=== PATIENT | male | born 1955 | race Caucasian/White ===

== ENCOUNTER 2018-01-17 15:16 | Inpatient (IN) | payer MEDICARE ==
[~2018-01-17] VITALS: Ht 182.9 cm; Wt 124.4 kg
[2018-01-17] MEDS ORDERED: SODIUM CHLORIDE FLUSH 10ML SYR IVF ONE ×2 (16:00)
[2018-01-17] MEDS ORDERED: METF500T17 PO (16:15)
[2018-01-17] MEDS ORDERED: ATEN50TA41 PO (16:15)
[2018-01-17] MEDS ORDERED: LISI-170 PO (16:15)
[2018-01-17 16:23] LABS: BASOPHILS # (AUTO) 0.02 x10^3/uL (0-0.1); BASOPHILS % (AUTO) 0 % (0-1); EOSINOPHILS # (AUTO) 0.08 x10^3/uL (0-0.4); EOSINOPHILS % (AUTO) 1 % (1-7); LYMPHOCYTES # (AUTO) 1.25 x10^3/uL (1-3.4); LYMPHOCYTES % (AUTO) 19 % (22-44); MD NO; MEAN CORPUSCULAR HGB CONC 33.4 g/dL (33.2-36.2); MEAN CORPUSCULAR VOLUME 89.9 fL (81-97); MONOCYTES # (AUTO) 0.46 x10^3/uL (0.2-0.8); MONOCYTES % (AUTO) 7 % (2-9); NEUTROPHILS # (AUTO) 4.91 x10^3/uL (1.8-6.8); NEUTROPHILS % (AUTO) 73 % (42-75); PLATELET COUNT 205 x10^3/uL (130-400); RED BLOOD COUNT 4.61 x10^6/uL (4.38-5.82); RED CELL DISTRIBUTION WIDTH 13.5 % (9.4-14.8)
[2018-01-17 16:36] LABS: ALANINE AMINOTRANSFERASE 28 U/L (12-78); ALBUMIN 2.9 g/dL (3.4-5.0); ANION GAP 9 mmol/L (5-15); CALCIUM 8.3 mg/dL (8.5-10.1); CHLORIDE 101 mmol/L (98-107); CREATININE 0.95 mg/dL (0.7-1.3)
[2018-01-17 16:41] LABS: ALKALINE PHOSPHATASE 91 U/L (45-117); BILIRUBIN,TOTAL 0.2 mg/dL (0.2-1.0); TOTAL PROTEIN 6.8 g/dL (6.4-8.2)
[2018-01-17 16:57] LABS: MICROSCOPIC NOT IND
[2018-01-17 17:03] LABS: CULTURE INDICATED? NO
[2018-01-17] MEDS: NICOTINE 14MG/24 HR PATCH.TD24 TD SCH ×2 (17:30→22:29)
[2018-01-17] MEDS ORDERED: ONDANSETRON ODT 4 MG PO PRN (17:30)
[2018-01-17] MEDS ORDERED: VANCOMYCIN PER PHARMACY MC PRN (17:30)
[2018-01-17] MEDS ORDERED: SODIUM CHLORIDE FLUSH 10ML SYR IVF PRN (17:30)
[2018-01-17] MEDS: INSULIN LISPRO 100 UNITS/ML, PEN SQ-INSULIN SCH ×2 (17:30→22:30)
[2018-01-17] MEDS: SODIUM CHLORIDE 0.9% 1,000 ML IV SCH (17:55)
[2018-01-17] MEDS ORDERED: AMPICILLIN/SULBACTAM 3 GM in SODIUM CHLORIDE 0.9% 100 ML IV ONE (18:00)
[2018-01-17 18:08] LABS: ACETONE, SERUM Small (20mg/dL) mg/dL (Negative)
[2018-01-17] MEDS ORDERED: PHARMACOKINETIC CONSULTATION MC ONE (18:30)
[2018-01-17] MEDS ORDERED: PHARMACOKINETIC MONITORING MC PRN (18:30)
[2018-01-17 18:44] LABS: HEMOGLOBIN A1C 12.5 % (4.2-6.3)
[2018-01-17] MEDS: VANCOMYCIN 1,700 MG in SODIUM CHLORIDE 0.9% 250 ML IV SCH (20:01)
[2018-01-17] MEDS ORDERED: INSULIN GLARGINE 100 UNITS/ML, PEN SQ-INSULIN SCH (21:00)
[2018-01-17] MEDS: ACETAMINOPHEN 325 MG TABLET PO PRN (22:29)
[2018-01-17] MEDS: ENOXAPARIN 40 MG/0.4 ML SQ SCH (22:29)
[2018-01-18] MEDS: AMPICILLIN/SULBACTAM 3 GM in SODIUM CHLORIDE 0.9% 100 ML IV SCH ×5 (01:02→20:11)
[2018-01-18 01:32] VITALS: BP 132/84
[2018-01-18] MEDS: ACETAMINOPHEN 325 MG TABLET PO PRN (04:19)
[2018-01-18 05:12] LABS: BASOPHILS # (AUTO) 0.03 x10^3/uL (0-0.1); BASOPHILS % (AUTO) 1 % (0-1); EOSINOPHILS % (AUTO) 2 % (1-7); LYMPHOCYTES % (AUTO) 24 % (22-44); MD NO; MEAN CORPUSCULAR HEMOGLOBIN 30.3 pg (27.5-34.5); MEAN CORPUSCULAR HGB CONC 33.7 g/dL (33.2-36.2); MEAN CORPUSCULAR VOLUME 90.1 fL (81-97); MEAN PLATELET VOLUME 10.2 fL (7.4-10.4); MONOCYTES # (AUTO) 0.41 x10^3/uL (0.2-0.8); MONOCYTES % (AUTO) 7 % (2-9); NEUTROPHILS # (AUTO) 4.16 x10^3/uL (1.8-6.8); NEUTROPHILS % (AUTO) 67 % (42-75); PLATELET COUNT 168 x10^3/uL (130-400); RED BLOOD COUNT 4.33 x10^6/uL (4.38-5.82); RED CELL DISTRIBUTION WIDTH 13.7 % (9.4-14.8)
[2018-01-18 05:22] LABS: ALBUMIN 2.4 g/dL (3.4-5.0); ANION GAP 7 mmol/L (5-15); CALCIUM 8.5 mg/dL (8.5-10.1); CHLORIDE 104 mmol/L (98-107)
[2018-01-18 05:33] LABS: ALANINE AMINOTRANSFERASE 23 U/L (12-78); ALKALINE PHOSPHATASE 76 U/L (45-117); BILIRUBIN,TOTAL 0.3 mg/dL (0.2-1.0); CHOL/HDL RATIO 5.1; CHOLESTEROL, TOTAL 154 mg/dL (140-239); CREATININE 0.89 mg/dL (0.7-1.3); HDL CHOL % 19 % (26-37); HDL CHOLESTEROL (DIRECT) 30 mg/dL (40-60); LDL CHOLESTEROL,CALCULATED 78 mg/dL (54-169); LDL/HDL RATIO 2.6 (0.5-3.0); TOTAL PROTEIN 5.8 g/dL (6.4-8.2); TRIGLYCERIDES 228 mg/dL (50-200); VLDL CHOLESTEROL 46 mg/dL (0-25)
[2018-01-18] MEDS: SODIUM CHLORIDE 0.9% 1,000 ML IV SCH (06:16)
[2018-01-18 07:10] VITALS: BP 126/77
[2018-01-18] MEDS: INSULIN LISPRO 100 UNITS/ML, PEN SQ-INSULIN SCH ×4 (07:45→20:02)
[2018-01-18] MEDS: VANCOMYCIN 1,700 MG in SODIUM CHLORIDE 0.9% 250 ML IV SCH (07:45)
[2018-01-18] MEDS: LISINOPRIL 20 MG TABLET PO SCH (08:00)
[2018-01-18] MEDS: GABAPENTIN 300 MG CAPSULE PO SCH ×2 (08:01→19:48)
[2018-01-18] MEDS: ATENOLOL 50 MG TABLET PO SCH (08:01)
[2018-01-18] MEDS: INSULIN GLARGINE 100 UNITS/ML, PEN SQ-INSULIN SCH ×2 (08:05→20:03)
[2018-01-18] MEDS: ALBUTEROL SULFATE 2.5 MG/3 ML NPPB PRN (11:00)
[2018-01-18 12:42] VITALS: BP 106/71
[2018-01-18] MEDS: NICOTINE 14MG/24 HR PATCH.TD24 TD SCH (16:19)
[2018-01-18] MEDS: ENOXAPARIN 40 MG/0.4 ML SQ SCH (16:19)
[2018-01-18 19:21] VITALS: BP 110/75
[2018-01-19 01:22] VITALS: BP 121/77
[2018-01-19] MEDS: SODIUM CHLORIDE 0.9% 1,000 ML IV SCH (01:51)
[2018-01-19] MEDS: AMPICILLIN/SULBACTAM 3 GM in SODIUM CHLORIDE 0.9% 100 ML IV SCH ×4 (01:51→21:22)
[2018-01-19 07:01] VITALS: BP 105/69
[2018-01-19] MEDS: INSULIN LISPRO 100 UNITS/ML, PEN SQ-INSULIN SCH ×4 (07:53→21:23)
[2018-01-19] MEDS: LISINOPRIL 20 MG TABLET PO SCH (08:00)
[2018-01-19] MEDS: GABAPENTIN 300 MG CAPSULE PO SCH ×2 (08:00→21:23)
[2018-01-19] MEDS: ATENOLOL 50 MG TABLET PO SCH (08:00)
[2018-01-19] MEDS: ADVAIR 100/50 INH SCH ×2 (08:01→19:54)
[2018-01-19] MEDS: VANCOMYCIN 1,900 MG in SODIUM CHLORIDE 0.9% 250 ML IV SCH (08:01)
[2018-01-19] MEDS: INSULIN GLARGINE 100 UNITS/ML, PEN SQ-INSULIN SCH ×2 (08:02→21:24)
[2018-01-19 09:45] VITALS: BP 100/65
[2018-01-19] MEDS ORDERED: INSU100I13 SQ-INSULIN (11:45)
[2018-01-19] MEDS ORDERED: METF850T10 PO (11:45)
[2018-01-19] MEDS ORDERED: GABA300C10 PO (11:45)
[2018-01-19] MEDS ORDERED: ATEN50TA41 PO (11:45)
[2018-01-19] MEDS ORDERED: AMOX1TAB64 PO (11:45)
[2018-01-19] MEDS ORDERED: DOXY100T9 PO (11:45)
[2018-01-19] MEDS ORDERED: LISI-170 PO (11:45)
[2018-01-19 13:44] VITALS: BP 117/72
[2018-01-19] MEDS: ENOXAPARIN 40 MG/0.4 ML SQ SCH (16:23)
[2018-01-19] MEDS: NICOTINE 14MG/24 HR PATCH.TD24 TD SCH (16:23)
[2018-01-19 19:18] VITALS: BP 131/76
[2018-01-19] MEDS: ALBUTEROL SULFATE 2.5 MG/3 ML NPPB SCH (20:53)
[2018-01-19] MEDS: BUDESONIDE 0.5 MG/2 ML INHA NPPB SCH (20:53)
[2018-01-20 01:19] VITALS: BP 126/72
[2018-01-20] MEDS: ALBUTEROL SULFATE 2.5 MG/3 ML NPPB SCH ×4 (02:22→20:06)
[2018-01-20] MEDS: AMPICILLIN/SULBACTAM 3 GM in SODIUM CHLORIDE 0.9% 100 ML IV SCH ×4 (04:03→20:54)
[2018-01-20 07:39] VITALS: BP 135/76
[2018-01-20] MEDS: VANCOMYCIN 1,900 MG in SODIUM CHLORIDE 0.9% 250 ML IV SCH (07:39)
[2018-01-20] MEDS: INSULIN LISPRO 100 UNITS/ML, PEN SQ-INSULIN SCH ×4 (07:39→20:54)
[2018-01-20] MEDS: BUDESONIDE 0.5 MG/2 ML INHA NPPB SCH ×2 (08:35→20:07)
[2018-01-20 09:28] VITALS: BP 127/74
[2018-01-20] MEDS: ADVAIR 100/50 INH SCH ×2 (09:29→20:54)
[2018-01-20] MEDS: GABAPENTIN 300 MG CAPSULE PO SCH ×2 (09:30→20:54)
[2018-01-20] MEDS: ATENOLOL 50 MG TABLET PO SCH (09:30)
[2018-01-20] MEDS: INSULIN GLARGINE 100 UNITS/ML, PEN SQ-INSULIN SCH ×2 (09:31→20:55)
[2018-01-20] MEDS: LISINOPRIL 20 MG TABLET PO SCH (09:31)
[2018-01-20 13:14] VITALS: BP 118/73
[2018-01-20] MEDS: NICOTINE 14MG/24 HR PATCH.TD24 TD SCH (17:05)
[2018-01-20] MEDS: ENOXAPARIN 40 MG/0.4 ML SQ SCH (17:05)
[2018-01-20 19:12] VITALS: BP 138/80
[2018-01-20] MEDS: ALBUTEROL SULFATE 2.5 MG/3 ML NPPB PRN (20:07)
[2018-01-21 00:30] VITALS: BP 134/76
[2018-01-21] MEDS: ALBUTEROL SULFATE 2.5 MG/3 ML NPPB SCH ×2 (02:17→02:18)
[2018-01-21] MEDS: AMPICILLIN/SULBACTAM 3 GM in SODIUM CHLORIDE 0.9% 100 ML IV SCH ×2 (03:43→09:30)
[2018-01-21] MEDS: INSULIN LISPRO 100 UNITS/ML, PEN SQ-INSULIN SCH ×2 (07:42→12:38)
[2018-01-21 07:50] VITALS: BP 128/75
[2018-01-21] MEDS: VANCOMYCIN 1,900 MG in SODIUM CHLORIDE 0.9% 250 ML IV SCH (08:31)
[2018-01-21] MEDS: ATENOLOL 50 MG TABLET PO SCH (08:31)
[2018-01-21] MEDS: ADVAIR 100/50 INH SCH (08:31)
[2018-01-21] MEDS: GABAPENTIN 300 MG CAPSULE PO SCH (08:31)
[2018-01-21] MEDS: LISINOPRIL 20 MG TABLET PO SCH (08:32)
[2018-01-21] MEDS: INSULIN GLARGINE 100 UNITS/ML, PEN SQ-INSULIN SCH (08:32)
[2018-01-21] MEDS: BUDESONIDE 0.5 MG/2 ML INHA NPPB SCH (09:00)
[2018-01-21] MEDS ORDERED: VANCOMYCIN 2,200 MG in SODIUM CHLORIDE 0.9% 500 ML IV SCH (20:00)
== END 2018-01-21 15:10 | disposition home or self-care (01) | DRG 603 ==
LOC: ED 17:07 → EDIP 17:19 → 3NE 18:11
PROVIDERS: ADMIT Internal Medicine; ATTEND Internal Medicine
DX: L03.116 Cellulitis of left lower limb (principal); E87.1 Hypo-osmolality and hyponatremia; E44.0 Moderate protein-calorie malnutrition; L03.115 Cellulitis of right lower limb; E11.65 Type 2 diabetes mellitus with hyperglycemia; I10 Essential (primary) hypertension; Z59.0 Homelessness; E11.42 Type 2 diabetes mellitus with diabetic polyneuropathy; E78.5 Hyperlipidemia, unspecified; F17.210 Nicotine dependence, cigarettes, uncomplicated; Z79.84 Long term (current) use of oral hypoglycemic drugs; Z99.3 Dependence on wheelchair
CPT/HCPCS: 36415; 71045; 80053; 80061; 80202; 81003; 82010; 82800; 82962; 83036; 83605; 83735; 83880; 84100; 84145; 84443; 85025; 87040; 90656; 93005; 93922; 94640; 99285; G0378; J0295; J1650; J3370; J7613; J7626; J1815; J7030; J7050